=== PATIENT | female | born 1995 | race Caucasian/White ===

== ENCOUNTER 2023-06-03 10:42 | Emergency (ER) | payer OTHER, SELFPAY ==
[2023-06-03 10:46] VITALS: BP 130/83; PULSE 65; RESP 18; TEMP 36.6; O2SAT 98; BMI 27.5
--- NOTE | 2023-06-03 11:00 | CT_ITS ---
[address] [address] Patient Name: RAGHAV ANDERSON MRN: [id number] date: 1995 Sex: F Assigned Patient Location: ER Current Patient Location: ER Accession/Order Number: [id number] Exam Date: 06/03/2023 11:29 Report Date: 06/03/2023 11:55 At the request of: JOO SALGADO Procedure: CT abdomen pelvis w con EXAMINATION: CT abdomen pelvis w con HISTORY: RLQ pain , nausea COMPARISON: No relevant comparison available. TECHNIQUE: Axial, Coronal, and Sagittal images were obtained without and/or with IV contrast as indicated by examination type. Dose reduction techniques were achieved by using automated exposure control and/or adjustment of mA and/or kV according to patient size and/or use of iterative reconstruction technique. FINDINGS: LUNG BASES: No visible pulmonary or pleural disease. LIVER: No enlargement, atrophy, suspicious density, or significant focal lesion. BILIARY: No dilatation or calcification. PANCREAS: No lesion, fluid collection, or abnormal duct dilatation. SPLEEN: No enlargement or focal lesion. ADRENALS: No mass or enlargement. KIDNEYS: Nonobstructing 3 mm stone within right kidney and one within left knee. BOWEL/MESENTERY: No visible mass, obstruction, or bowel wall thickening. AORTA/VASCULAR: No aneurysm or dissection. RETROPERITONEUM: No mass or adenopathy. LYMPH NODES: No adenopathy. URINARY BLADDER: No visible focal wall thickening, lesion, or calculus. PELVIC ORGANS: Right ovary contains a 3.5 cm cyst. No visible mass. Pelvic organs appropriate for patient age. ABDOMINAL WALL: No mass or hernia. BONES: No bony lesion or fracture. OTHER: Negative. CT/CT abdomen pelvis w con IMPRESSION: 1.Within the right ovary is a 3.5 cm benign-appearing cyst which may contribute to patient's symptoms. No inflammatory changes or free fluid to suggest torsion. 2.Normal appendix. No acute bowel findings. Electronically authenticated by: YANA CAICEDO Date: 06/03/2023 11:55
[2023-06-03 11:01] VITALS: O2SAT 98
--- NOTE | 2023-06-03 11:01 | ED_ITS ---
HPI - Abdominal Pain General Chief Complaint: Abdominal Pain Stated Complaint: ABD PAIN Time Seen by Provider: 06/03/23 10:57 Source: patient Mode of arrival: walk-in Limitations: no limitations History of Present Illness HPI narrative: 28-year-old female presents for abdominal pain. It started yesterday, mild. It got a bit worse today and it's in her right lower quadrant. She is worried about her appendix. The pain is continuous and moderate. No trauma or fever. No vomiting or diarrhea. Related Data Allergies Allergy/AdvReac Type Severity Reaction Status Date / Time No Known Drug Allergies Allergy Verified 06/03/23 10:46 Review of Systems ROS Narrative A ten point review of systems is negative except as noted above. Exam Narrative Exam Narrative: Nurses note and vital signs reviewed and patient is not hypoxic. General: The patient appears well and in no apparent distress. Patient is resting comfortably on cart. Skin: Warm, dry, no pallor noted. There is no rash noted. Head: Normocephalic, atraumatic Eye: Normal conjunctiva, no drainage Ears, Nose, Mouth, and Throat: oral mucosa is moist. Nares patent. Cardiovascular: Regular Rate and Rhythm Respiratory: Patient is in no distress, no accessory muscle use, lungs are clear to auscultation, no wheezing, rales or rhonchi Back: non-tender GI: tender in the right lower quadrant. No mass. Musculoskeletal: The patient has no evidence of calf tenderness, no pitting edema, symmetrical pulses noted bilaterally Neurological: A&O normal speech Psychiatric: Cooperative Constitutional Vital Signs, click to edit/add: Last Vital Signs Temp 97.9 F 06/03/23 10:46 Pulse 65 06/03/23 10:46 Resp 18 06/03/23 10:46 BP 130/83 06/03/23 10:46 Pulse Ox 98 06/03/23 11:01 Course Vital Signs Vital signs: Vital Signs Temperature 97.9 F 06/03/23 10:46 Pulse Rate 65 06/03/23 10:46 Respiratory Rate 18 06/03/23 10:46 Blood Pressure 130/83 06/03/23 10:46 Pulse Oximetry 98 06/03/23 10:46 Temperature 97.9 F 06/03/23 10:46 Pulse Rate 65 06/03/23 10:46 Respiratory Rate 18 06/03/23 10:46 Blood Pressure 130/83 06/03/23 10:46 Pulse Oximetry 98 06/03/23 11:01 MDM - Abdominal Pain MDM Narrative Medical decision making narrative: 3.5 cm right ovarian cyst is identified. No evidence of appendicitis and she'll be discharged home. She'll follow-up with her oncologist. Treatment diagnosis and follow-up were discussed with the patient and her mother. Differential Diagnosis Differential diagnosis: Likely abdominal pain, acute appendicitis, calculus of kidney, constipation, endometriosis, gastroenteritis and small bowel obstruction Lab Data Attestation: I reviewed the patient's lab results. Labs: Lab Results 06/03/23 06/03/23 Range/Units 10:50 10:54 WBC 6.7 (4.0-11.0) 10^3/uL RBC 4.62 (4.20-5.40) 10^6/uL Hgb 14.3 (12.0-16.0) g/dL Hct 42.1 (36.0-48.0) % MCV 91.1 (81.0-99.0) fL MCH 31.0 (26.7-34.0) pg MCHC 34.0 (29.9-35.2) g/dL RDW 11.8 (11.0-15.0) % Plt Count 281 (150-450) 10^3/uL MPV 9.4 L (9.5-13.5) fL Neut % (Auto) 65.2 (43.0-75.0) % Lymph % (Auto) 26.6 (20.5-60.0) % [place] % (Auto) 6.2 (1.7-12.0) % Eos % (Auto) 0.6 L (0.9-7.0) % Baso % (Auto) 0.8 (0.2-2.0) % Neut # (Auto) 4.3 (1.4-6.5) 10^3/uL Lymph # (Auto) 1.8 (1.2-3.8) 10^3/uL [place] # (Auto) 0.4 (0.3-0.8) 10^3/uL Eos # (Auto) 0.0 (0.0-0.7) 10^3/uL Baso # (Auto) 0.1 (0.0-0.1) 10^3/uL Abs Immat Gran (auto) 0.04 H (0.00-0.03) 10^3/uL Imm/Tot Granulo (auto) 0.6 H (0.0-0.5) % Sodium 141 (136-145) mmol/L Potassium 3.9 (3.5-5.1) mmol/L Chloride 103 (98-107) mmol/L Carbon Dioxide 29.7 (21.0-32.0) mmol/L Anion Gap 12.2 BUN 13.0 (7.0-18.0) mg/dL Creatinine 0.73 (0.55-1.02) mg/dL Est GFR ( Amer) >60 (>=60) Est GFR (Non-Af Amer) >60 (>=60) BUN/Creatinine Ratio 17.8 Glucose 94 (74-106) mg/dL Calcium 8.6 (8.5-10.1) mg/dL Urine Color Lt. yellow (YELLOW) Urine Clarity Clear (CLEAR) Urine pH 7.5 (5.0-9.0) Ur Specific [place] 1.020 (1.005-1.025) Urine Protein Negative (NEG/TRACE) mg/dL Urine Glucose (UA) Negative (NEGATIVE) mg/dL Urine Ketones Negative (NEGATIVE) mg/dL Urine Occult Blood Negative (NEGATIVE) Urine Nitrite Negative (NEGATIVE) Urine Bilirubin Negative (NEGATIVE) Urine Urobilinogen 0.2 (0.2-1.0) EU/dL Ur Leukocyte Esterase Trace A (NEGATIVE) Urine RBC None seen (0-2) #/HPF Urine WBC 0-2 A (NONE SEEN) #/HPF Ur Squamous Epith Cells Few A (NONE/RARE) #/LPF Urine Crystals None seen (None Seen) #/HPF Urine Bacteria None seen (NONE SEEN) #/HPF Urine Casts None seen (NONE SEEN) #/LPF Urine Mucus None seen (NONE SEEN) Ur Culture Indicated? No Urine HCG, Qual Negative (NEGATIVE) Discharge Plan Discharge Chief Complaint: Abdominal Pain Clinical Impression: Cyst of right ovary Patient Disposition: Home, Self-Care Time of Disposition Decision: 12:34 Condition: Good Mode of Transportation: Private Vehicle Instructions: Ovarian Cyst (ED) Stand Alone Forms: Portal Instructions Referrals: DEA ANDERSON [Primary Care Provider] - 1 week
[2023-06-03 11:06] LABS: Bilirubin Urine NEGATIVE (NEGATIVE); Blood Urine NEGATIVE (NEGATIVE); Clarity Urine CLEAR (CLEAR); Color Urine LT. YELLOW (YELLOW); Glucose Urine UA NEGATIVE (NEGATIVE); Ketones Urine NEGATIVE (NEGATIVE); Leukocyte Esterase Urine TRACE (NEGATIVE); Nitrite Urine NEGATIVE (NEGATIVE); Protein Urine NEGATIVE (NEG/TRACE); Urobilinogen Urine 0.2 EU/dL (0.2-1.0); pH Urine 7.5 (5.0-9.0)
[2023-06-03 11:07] LABS: Basophils Absolute Auto 0.1 10^3/uL (0.0-0.1); Basophils Percent Auto 0.8 % (0.2-2.0); Eosinophils Percent Auto 0.6 % (0.9-7.0); Hematocrit 42.1 % (36.0-48.0); Hemoglobin 14.3 g/dL (12.0-16.0); Immature Granulocytes Abs Auto 0.04 10^3/uL (0.00-0.03); Immature Granulocytes Pct Auto 0.6 % (0.0-0.5); Lymphocytes Absolute Auto 1.8 10^3/uL (1.2-3.8); Lymphocytes Percent Auto 26.6 % (20.5-60.0); Mean Corpuscular Volume 91.1 fL (81.0-99.0); Mean Platelet Volume 9.4 fL (9.5-13.5); Monocytes Absolute Auto 0.4 10^3/uL (0.3-0.8); Monocytes Percent Auto 6.2 % (1.7-12.0); Neutrophils Absolute Auto 4.3 10^3/uL (1.4-6.5); Neutrophils Percent Auto 65.2 % (43.0-75.0); Platelet Count 281 10^3/uL (150-450); Red Blood Count 4.62 10^6/uL (4.20-5.40); Red Cell Distribution Width 11.8 % (11.0-15.0); White Blood Count 6.7 10^3/uL (4.0-11.0)
[2023-06-03 11:12] LABS: Anion Gap 12.2; BUN Creatinine Ratio 17.8; Calcium 8.6 mg/dL (8.5-10.1); Carbon Dioxide 29.7 mmol/L (21.0-32.0); Chloride 103 mmol/L (98-107); Estimated GFR (African America >60 (>=60); Estimated GFR (Non-African Ame >60 (>=60); Glucose 94 mg/dL (74-106); Potassium 3.9 mmol/L (3.5-5.1); Sodium 141 mmol/L (136-145)
[2023-06-03 11:13] LABS: Bacteria Urine NONE SEEN #/HPF (NONE SEEN); Mucus Urine NONE SEEN (NONE SEEN); RBC Urine NONE SEEN #/HPF (0-2); WBC Urine 0-2 #/HPF (NONE SEEN)
[2023-06-03 11:14] LABS: Cast Seen? NONE SEEN #/LPF (NONE SEEN); Crystals Seen? None Seen #/HPF (None Seen); HCG Qualitative Urine* NEGATIVE (NEGATIVE); Squamous Epithelial Cell Urine FEW #/LPF (NONE/RARE); Urine Culture Indicated NO
== END 2023-06-03 12:42 | disposition home or self-care (01) ==
PROVIDERS: Emergency Provider Emergency Medicine
DX: N83.201 Unspecified ovarian cyst, right side (principal)
CPT/HCPCS: 36415; 74177; 80048; 81001; 84703; 85025; 99284; Q9967

== ENCOUNTER 2023-07-06 19:27 | Outpatient (REF) | payer OTHER, SELFPAY ==
[2023-07-10 15:10] LABS: Age Gdln ACOG Testing Note (.); IGP, rfx Aptima HPV ASCU Note (.)
== END 2023-07-06 19:28 | disposition home or self-care (01) ==
LOC: LAB 19:27
PROVIDERS: Visit Provider Physician Assistant
DX: Z12.4 Encounter for screening for malignant neoplasm of cervix (principal)
CPT/HCPCS: G0145

== ENCOUNTER 2023-07-14 10:52 | Outpatient (OUT) | payer OTHER, SELFPAY ==
[2023-07-14 11:29] LABS: Basophils Percent Auto 0.3 % (0.2-2.0); Eosinophils Absolute Auto 0.1 10^3/uL (0.0-0.7); Hematocrit 40.3 % (36.0-48.0); Hemoglobin 13.5 g/dL (12.0-16.0); Immature Granulocytes Abs Auto 0.02 10^3/uL (0.00-0.03); Immature Granulocytes Pct Auto 0.3 % (0.0-0.5); Lymphocytes Absolute Auto 1.6 10^3/uL (1.2-3.8); Lymphocytes Percent Auto 27.9 % (20.5-60.0); Mean Corpuscular HGB Conc 33.5 g/dL (29.9-35.2); Mean Corpuscular Volume 92.6 fL (81.0-99.0); Mean Platelet Volume 9.8 fL (9.5-13.5); Monocytes Absolute Auto 0.3 10^3/uL (0.3-0.8); Monocytes Percent Auto 5.6 % (1.7-12.0); Neutrophils Absolute Auto 3.8 10^3/uL (1.4-6.5); Neutrophils Percent Auto 64.9 % (43.0-75.0); Platelet Count 246 10^3/uL (150-450); Red Blood Count 4.35 10^6/uL (4.20-5.40); Red Cell Distribution Width 11.4 % (11.0-15.0); White Blood Count 5.9 10^3/uL (4.0-11.0)
[2023-07-14 11:31] LABS: Estimated Average Glucose 97 mg/dL
[2023-07-14 11:36] LABS: INR 1.03; Prothrombin Time 10.9 sec (9.0-11.6)
[2023-07-14 13:41] LABS: HCG Quantitative <1 mIU/mL; Thyroid Stimulating Hormone 0.903 uIU/mL (0.358-3.740)
== END 2023-07-14 10:53 | disposition home or self-care (01) ==
LOC: LAB 10:54
PROVIDERS: Visit Provider Physician Assistant
DX: N92.1 Excessive and frequent menstruation with irregular cycle (principal)
CPT/HCPCS: 36415; 83036; 84439; 84443; 84702; 85025; 85610

== ENCOUNTER 2023-07-20 09:56 | Outpatient (OUT) | payer OTHER, SELFPAY ==
--- NOTE | 2023-07-20 10:01 | US_ITS ---
The [address] [address] Patient Name: RAGHAV ANDERSON MRN: [id number] date: 1995 Sex: F Assigned Patient Location: Current Patient Location: US Accession/Order Number: [id number] Exam Date: 07/20/2023 10:05 Report Date: 07/20/2023 16:58 At the request of: KRISTINE DAVIDSON Procedure: US pelvis w/ transvaginal EXAMINATION: US pelvis w/ transvaginal HISTORY: Pelvic pain R10.2 COMPARISON: No relevant comparison available. FINDINGS: Transabdominal and transvaginal images The uterus is normal in size, contour and myometrial echotexture measuring 9.1 x 5.0 x 3.9 cm. No focal myometrial mass. The endometrium measures 6 mm, normal. The right ovary measures 4.1 x 2.6 x 2.1 cm. Normal color and Doppler flow. Multiple areas of anechoic echogenicity measuring up to 2.0 cm, cysts and/or follicles The left ovary measures 4.4 x 3.0 x 2.0 cm. Normal color Doppler flow. Multiple areas of anechoic echogenicity measuring up to 1.9 cm, cysts and/or follicles Asymmetric dilated right periadnexal vessels US/US pelvis w/ transvaginal IMPRESSION: Bilateral ovarian cysts measuring up to 2 cm in the right Dilated right periadnexal vessels, consider uterine vein reflux, pelvic vascular congestion Electronically authenticated by: NEMO GONZALES Date: 07/20/2023 16:58
== END 2023-07-20 09:57 | disposition home or self-care (01) ==
LOC: US 09:56
PROVIDERS: Visit Provider Obstetrics & Gynecology
DX: R10.2 Pelvic and perineal pain (principal); N83.202 Unspecified ovarian cyst, left side; N83.201 Unspecified ovarian cyst, right side
CPT/HCPCS: 76830; 76856

== ENCOUNTER 2023-09-06 09:51 | Outpatient (OUT) | payer OTHER, SELFPAY ==
--- NOTE | 2023-09-06 10:29 | XR_ITS ---
The [address] [address] Patient Name: RAGHAV ANDERSON MRN: [id number] date: 1995 Sex: F Assigned Patient Location: [facility] Current Patient Location: [facility] Accession/Order Number: [id number] Exam Date: 09/06/2023 10:50 Report Date: 09/06/2023 11:06 At the request of: KRISTINE DAVIDSON Procedure: XR chest 2V EXAM: XR chest 2V HISTORY: Preop exam COMPARISON: None. TECHNIQUE: PA and lateral views of the chest. FINDINGS: The cardiomediastinal silhouette is normal. No focal consolidation is identified. There is no pneumothorax. No pleural effusion is noted. The osseous structures are intact. XR/XR chest 2V IMPRESSION: No acute cardiopulmonary process. Electronically authenticated by: EVERT KURTZ Date: 09/06/2023 11:06
== END 2023-09-06 09:52 | disposition home or self-care (01) ==
LOC: PST 09:52
PROVIDERS: Visit Provider Obstetrics & Gynecology
DX: Z01.810 Encounter for preprocedural cardiovascular examination (principal); R10.2 Pelvic and perineal pain; N94.89 Other specified conditions associated with female genital organs and menstrual cycle; N92.0 Excessive and frequent menstruation with regular cycle
CPT/HCPCS: 71046

== ENCOUNTER 2023-09-17 06:16 | Day surgery (SDC) | payer OTHER, SELFPAY ==
[2023-09-06 10:17] VITALS: BP 105/70; PULSE 80; RESP 16; TEMP 36.4; O2SAT 100; BMI 26.7
[2023-09-17] VITALS (9 sets, daily range): BP systolic 106–127; BP diastolic 62–76; PULSE 74–84; RESP 12–16; TEMP 36.4–36.5; O2SAT 93–100; BMI 26.7
[2023-09-17 06:24] LABS: Basophils Percent Auto 0.3 % (0.2-2.0); Eosinophils Absolute Auto 0.1 10^3/uL (0.0-0.7); Eosinophils Percent Auto 1.6 % (0.9-7.0); Hematocrit 41.3 % (36.0-48.0); Hemoglobin 13.5 g/dL (12.0-16.0); Immature Granulocytes Abs Auto 0.04 10^3/uL (0.00-0.03); Immature Granulocytes Pct Auto 0.5 % (0.0-0.5); Lymphocytes Absolute Auto 3.3 10^3/uL (1.2-3.8); Mean Corpuscular HGB Conc 32.7 g/dL (29.9-35.2); Mean Corpuscular Hemoglobin 30.4 pg (26.7-34.0); Mean Platelet Volume 9.4 fL (9.5-13.5); Monocytes Absolute Auto 0.6 10^3/uL (0.3-0.8); Monocytes Percent Auto 6.6 % (1.7-12.0); Neutrophils Absolute Auto 4.6 10^3/uL (1.4-6.5); Platelet Count 266 10^3/uL (150-450); Red Blood Count 4.44 10^6/uL (4.20-5.40); Red Cell Distribution Width 11.3 % (11.0-15.0); White Blood Count 8.7 10^3/uL (4.0-11.0)
[2023-09-17] MEDS: LACTATED RINGER'S SOLUTION 1,000 ML 50 ML IV ×2 (06:39→07:51)
[2023-09-17 06:43] LABS: HCG Quantitative <1 mIU/mL
--- NOTE | 2023-09-17 08:18 | P.ON_ITS ---
Brief Operative Note Date of procedure: 09/17/23 Pre-op diagnosis: menorrhagia, pelvic pain Post-op diagnosis: same as pre-op Procedure: NAME OF PROCEDURE: [ D&C Hysteroscopy, Diagnostic Laparoscopy] PROCEDURE: The patient was taken back to the Operating Room where she was prepped and draped in normal sterile fashion after being placed under general anesthesia without difficulty. She was also placed in the dorsal lithotomy position. A weighted speculum was placed in the patient?s vagina. The anterior lip of the cervix was identified and grasped with a single tooth tenaculum. The patient?s uterus was then sounded roughly to [?9 ] cm. The patient was then gently dilated using Hegar dilators. The hysteroscope was passed through the patient?s cervix into the uterus. Both ostia were identified. Normal appearing endometrium. No gross evidence of polyps, fibroids or malignancy. The hysteroscope was then removed from the patient's uterus.? At that point, gentle curettage was performed until a gritty texture was noted. The endometrial curettings were sent out to pathology.? The single tooth tenaculum was then removed from the patient's anterior lip of the cervix where excellent hemostasis was noted. A sponge stick was placed into the patient's vagina. Attention was turned to the patient's abdomen, where a small umbilical incision was made. The fascia was tented using Jhoana clamps and the fascia was entered sharply. Confirmation of intraabdominal placement of the 10 mm port was confirmed under direct visualization using a laparoscope. The patient's abdomen was then insufflated using CO2 gas with approximately 4 liters. A second port was placed left laterally, this was done under direct visualization with a 5 mm port. Survey of the patient's abdomen demonstrated normal liver and gallbladder. Survey of the patient's pelvic anatomy demonstrated normal appearing rt and lt ovary and tubes as well as normal appearing uterus. No endometrial implants could be noted, no evidence of any pelvic disease was seen, normal appearing pelvic cavity. All instruments were removed from the patient's abdomen. The patient's abdomen was deinsufflated of CO2 gas. The patient tolerated the procedure well. Sponge stick was removed from the patient's vagina. The patient's infraumbilical fascia was closed using #0 Vicryl on a GI needle. The patient's skin was closed laterally and infraumbilically using 4-0 Vicryl. The patient tolerated the procedure well. Sponge, lap and needle counts were correct x 2. The patient was taken to Recovery Room in stable condition.Clips from prior surgery noted adhered to bladder, the clips were grasped and gently removed Anesthesia: AMOS Surgeon: Adan Rossi Rental Clerk [employer] Equipment: Gracia Ghosh Estimated blood loss (mL): 5 Pathology: none sent Condition: stable Disposition: PACU
== END 2023-09-17 09:23 | disposition home or self-care (01) ==
PROVIDERS: Visit Provider Obstetrics & Gynecology
PROC: (CPT 840; principal; 2023-09-17 07:30)
DX: R10.2 Pelvic and perineal pain (principal); N92.0 Excessive and frequent menstruation with regular cycle; N94.89 Other specified conditions associated with female genital organs and menstrual cycle; N83.202 Unspecified ovarian cyst, left side; N83.201 Unspecified ovarian cyst, right side; Z98.51 Tubal ligation status; F17.290 Nicotine dependence, other tobacco product, uncomplicated
CPT/HCPCS: 49320; 58558; 36415; 84702; 85025; 88305; J2704

== ENCOUNTER 2023-10-04 09:56 | Emergency (ER) | payer OTHER, SELFPAY ==
[2023-10-04 10:02] VITALS: BP 102/82; PULSE 81; RESP 18; TEMP 37.2; O2SAT 99; BMI 20.7
--- NOTE | 2023-10-04 10:21 | ED.URI1 ---
HPI - URI/Sore Throat General Chief Complaint: Upper Respiratory Infection Stated Complaint: FEVER, SORE THROAT Time Seen by Provider: 10/04/23 10:21 Source: patient History of Present Illness HPI Narrative: this is a healthy 28-year-old with forty-eight hours cough cold runny nose sore throat. She is tested twice for Covid, 1st two days ago and then again today. It was negative. She has had Covid in the past. She does not have any nausea vomiting or gastrointestinal symptoms. She has not had any use of antibiotics. Does not have a skin rash. She is otherwise healthy with no immune compromising disorders. She went to an urgent care but the physician there was ill. Her family doctor was not and so she came to the hospital. 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 Related Data Previous Rx's Medication Instructions Recorded hydrocodone 5 mg-acetaminophen 325 1 tab PO Q4H PRN pain 4 days #16 09/17/23 mg tablet tabs ibuprofen 800 mg tablet 800 mg PO Q8H PRN pain 14 days #40 09/17/23 tabs Allergies Allergy/AdvReac Type Severity Reaction Status Date / Time No Known Drug Allergies Allergy Verified 09/17/23 06:32 PFSH PFS Medical History (Updated 10/04/23 @ 11:12 by Kevin Joel MD) COVID-19 ?U07.1 - COVID-19 (ICD-10) Ovarian cyst ?N83.209 - Unspecified ovarian cyst, unspecified side (ICD-10) Surgical History (Updated 09/06/23 @ 10:13 by Fabiola Slade) History of colonoscopy ?Z98.890 - Other specified postprocedural states (ICD-10) History of mandibular surgery ?Z98.890 - Other specified postprocedural states (ICD-10) History of salpingectomy ?Z90.79 - Acquired absence of other genital organ(s) (ICD-10) Family History (Updated 09/06/23 @ 10:14 by Fabiola Slade) Other Family history of diabetes mellitus Family history of hypertension Family history of myocardial infarction Family history of stroke Social History (Updated 09/06/23 @ 10:16 by Fabiola Slade) Within the past year, how often did you have a drink containing alcohol: never Score interpretation: A score less than 3 is consistent with normal alcohol consumption. Smoking status: Former smoker Do you use any of these nicotine containing products: vaping products Non-prescribed substance use: denies use Previous occupational history: facility supervisor at [employer] Highest level of school completed/degree received: some college, no degree Exam Narrative Exam Narrative: patient's awake alert vital signs are stable she's afebrile. Does not appear ill. Does not have a headache. HEENT shows clear rhinitis. Her pharynx is benign erythematous, there is no exudate. Her voice is slightly raspy. There is no stridor. There is no swelling of the uvula. Neck is soft and supple. Lungs are clear with no wheezes rales or rhonchi. Her pulse oximetry is ninety-nine percent on room air and there is no respiratory distress. She does not have myalgias arthralgias or other systemic complaints. She has no urinary symptomatology. Constitutional Vital Signs, click to edit/add: Last Vital Signs Temp 99.0 F 10/04/23 10:02 Pulse 81 10/04/23 10:02 Resp 18 10/04/23 10:02 BP 102/82 10/04/23 10:02 Pulse Ox 99 10/04/23 10:02 O2 Del Method Room Air 10/04/23 10:02 Course Vital Signs Vital signs: Vital Signs Temperature 99.0 F 10/04/23 10:02 Pulse Rate 81 10/04/23 10:02 Respiratory Rate 18 10/04/23 10:02 Blood Pressure 102/82 10/04/23 10:02 Pulse Oximetry 99 10/04/23 10:02 Oxygen Delivery Method Room Air 10/04/23 10:02 Temperature 99.0 F 10/04/23 10:02 Pulse Rate 81 10/04/23 10:02 Respiratory Rate 18 10/04/23 10:02 Blood Pressure 102/82 10/04/23 10:02 Pulse Oximetry 99 10/04/23 10:02 Oxygen Delivery Method Room Air 10/04/23 10:02 MDM - URI/Sore Throat MDM Narrative Medical decision making narrative: despite having classic upper respiratory type symptoms and findings this patient's strep is positive. We will treat her for that. She'll begin this report note as needed Discharge Plan Discharge Chief Complaint: Upper Respiratory Infection Clinical Impression: Acute streptococcal pharyngitis Patient Disposition: Home, Self-Care Time of Disposition Decision: 11:12 Prescriptions / Home Meds: No Action ibuprofen 800 mg tablet 800 mg PO Q8H PRN (Reason: pain) 14 Days Qty: 40 0RF hydrocodone-acetaminophen 5-325 mg tablet 1 tab PO Q4H PRN (Reason: pain) 4 Days Qty: 16 0RF Hold Instructions: dc Additional Instructions: amoxicillin Stand Alone Forms: Portal Instructions Referrals: Physician,Non-Staff, MD [Primary Care Provider] - 1 week
[2023-10-04 10:31] LABS: Internal Control Within Normal Limits; Strep A Antigen Screen Positive
[2023-10-04 11:16] VITALS: BP 107/71; PULSE 88; RESP 16; O2SAT 98
== END 2023-10-04 11:18 | disposition home or self-care (01) ==
PROVIDERS: Emergency Provider Emergency Medicine Emergency Medical Services
DX: J02.0 Streptococcal pharyngitis (principal); Z86.16 Personal history of COVID-19; Z90.79 Acquired absence of other genital organ(s); Z98.890 Other specified postprocedural states; F17.290 Nicotine dependence, other tobacco product, uncomplicated
CPT/HCPCS: 87880; 99283